=== PATIENT | female | born 1950 | race African-American/Black ===

== ENCOUNTER 2019-08-22 13:12 | Emergency (ER) | payer BC, MEDICAID, MEDICARE ==
[~2019-08-22] VITALS: Ht 167.6 cm; Wt 62.0 kg
[2019-08-22] MEDS ORDERED: SODIUM CHLORIDE 0.9% 1000ML BAG (SEPSIS BOLUS) IV ONE (15:30)
[2019-08-22 15:58] LABS: HEMATOCRIT. 29.3 % (36.0-48.0); HEMOGLOBIN. 10.1 g/dL (12.0-16.0); MEAN CORPUSCULAR HEMOGLOBIN 34.3 pg (28.0-32.0); MEAN CORPUSCULAR VOLUME 99.4 fL (81.0-99.0); MEAN PLATELET VOLUME 8.5 fl (7.4-10.4); PLATELET 326 x1000/uL (130-400); RED BLOOD CELL COUNT 2.95 mill/uL (4.2-5.4); RED CELL DISTRIBUTION WIDTH 14.2 % (11.6-14.6)
[2019-08-22 16:02] LABS: CLARITY URINE TURBID (CLEAR); COLOR URINE DARK YELLOW (YELLOW); KETONES URINE 1+ (NEGATIVE); LEUKOCYTE ESTERASE URINE 3+ (NEGATIVE); NITRITE URINE NEGATIVE (NEGATIVE); OCCULT BLOOD URINE 2+ (NEGATIVE); PH URINE 5.5 (4.5-8.0); PROTEIN URINE 2+ (NEGATIVE); SPECIFIC GRAVITY URINE 1.021 (1.005-1.030)
[2019-08-22 16:05] LABS: CHLORIDE 98 mEq/L (98-107)
[2019-08-22 16:12] LABS: PROTHROMBIN TIME 10.9 sec (9.6-11.0)
[2019-08-22] MEDS ORDERED: CEFTRIAXONE 1 G PREMIX 50 ML IV NR (17:00)
[2019-08-22 18:49] LABS: NUCLEATED RED BLOOD CELLS 2 /100 WBC; PLATELET ESTIMATE NORMAL
[2019-08-22 19:26] VITALS: BP 143/75
[2019-08-23] MEDS ORDERED: OXYB5TAB16 PO (09:47)
[2019-08-23] MEDS ORDERED: OMEP20TA15 PO (09:47)
[2019-08-23] MEDS ORDERED: BACL20TA MT (09:47)
[2019-08-23] MEDS ORDERED: METO1TAB26 MT (09:47)
[2019-08-23] MEDS ORDERED: GABA-531 PO (09:47)
== END 2019-08-22 19:28 | disposition home or self-care (01) ==
LOC: ER 13:12 → CANBEDREQ 21:22
DX: N39.0 Urinary tract infection, site not specified (principal); N31.9 Neuromuscular dysfunction of bladder, unspecified; E86.0 Dehydration; E11.9 Type 2 diabetes mellitus without complications; I10 Essential (primary) hypertension; G82.20 Paraplegia, unspecified; Z99.3 Dependence on wheelchair
CPT/HCPCS: 36415; 71045; 80053; 81003; 82962; 83605; 84145; 84484; 85025; 85610; 87040; 87086; 93005; 96365; 99285; J0696; J7030

== ENCOUNTER 2019-08-22 23:57 | Inpatient (IN) | payer BC, MEDICARE ==
[~2019-08-22] VITALS: Ht 167.6 cm; Wt 73.9 kg
[2019-08-23 02:02] LABS: CLARITY URINE CLOUDY (CLEAR); COLOR URINE YELLOW (YELLOW); KETONES URINE 1+ (NEGATIVE); LEUKOCYTE ESTERASE URINE 2+ (NEGATIVE); NITRITE URINE NEGATIVE (NEGATIVE); OCCULT BLOOD URINE 2+ (NEGATIVE); PH URINE 5.5 (4.5-8.0); PROTEIN URINE 2+ (NEGATIVE); SPECIFIC GRAVITY URINE 1.017 (1.005-1.030)
[2019-08-23 02:04] LABS: CHLORIDE 100 mEq/L (98-107)
[2019-08-23 02:08] LABS: HEMOGLOBIN. 10.1 g/dL (12.0-16.0); MEAN CORPUSCULAR HEMOGLOBIN 33.7 pg (28.0-32.0); MEAN CORPUSCULAR VOLUME 100.4 fL (81.0-99.0); MEAN PLATELET VOLUME 8.5 fl (7.4-10.4); PLATELET 343 x1000/uL (130-400); RED BLOOD CELL COUNT 2.99 mill/uL (4.2-5.4); RED CELL DISTRIBUTION WIDTH 14.1 % (11.6-14.6)
[2019-08-23 05:47] LABS: ATYPICAL LYMPHOCYTES 1; PLATELET ESTIMATE NORMAL
[2019-08-23] MEDS ORDERED: HYDROCODONE/ACETAMINOPHEN 5/325MG TABLET PO PRN ×2 (06:00→06:30)
[2019-08-23] MEDS ORDERED: ONDANSETRON HCL 4MG/2ML INJ IV PRN (06:30)
[2019-08-23] MEDS ORDERED: CEFTRIAXONE 1 G PREMIX 50 ML IV SCH (06:30)
[2019-08-23] MEDS ORDERED: ACETAMINOPHEN 325MG TABLET PO PRN (06:30)
[2019-08-23] MEDS ORDERED: GUAIFENESIN 200MG/10ML SUGAR FREE UDC PO PRN (06:30)
[2019-08-23] MEDS ORDERED: MAGNESIUM/ALUMINUM HYDROXIDE/SIMETHICONE 30ML UDC PO PRN (06:30)
[2019-08-23] MEDS: SODIUM CHLORIDE 0.9% 1,000 ML IV SCH ×2 (06:48→21:50)
[2019-08-23] MEDS ORDERED: BACL20TA MT (09:47)
[2019-08-23] MEDS ORDERED: OXYB5TAB16 PO (09:47)
[2019-08-23] MEDS ORDERED: METO1TAB26 MT (09:47)
[2019-08-23] MEDS ORDERED: OMEP20TA15 PO (09:47)
[2019-08-23] MEDS ORDERED: GABA-531 PO (09:47)
[2019-08-23] MEDS: ENOXAPARIN 40MG/0.4ML SYR SUBCUT SCH (09:54)
[2019-08-23] MEDS ORDERED: DEXTROSE 50% WATER 50ML SYRINGE IV PRN (10:45)
[2019-08-23 12:30] VITALS: BP 140/83
[2019-08-23 12:46] VITALS: BP 140/83
[2019-08-23] MEDS ORDERED: BACLOFEN 20MG TABLET PO SCH (13:00)
[2019-08-23] MEDS: OMEPRAZOLE 20MG CAPSULE EXTENDED RELEASE PO SCH (13:10)
[2019-08-23] MEDS: GABAPENTIN 300MG CAPSULE PO SCH ×2 (13:10→16:42)
[2019-08-23] MEDS: OXYBUTYNIN CHLORIDE 5MG TABLET PO SCH ×2 (13:11→16:42)
[2019-08-23] MEDS: METOPROLOL TARTRATE 25MG TABLET PO SCH ×2 (13:11→21:38)
[2019-08-23] MEDS: BLOOD SUGAR DIAGNOSTIC STRIP TEST SCH ×3 (13:22→21:32)
[2019-08-23] MEDS: INSULIN LISPRO 100 UNITS/ML SUBCUT SCH ×3 (13:27→21:37)
[2019-08-23 16:00] VITALS: BP 134/84
[2019-08-23] MEDS: BACLOFEN 10MG TABLET PO SCH ×2 (16:44→21:37)
[2019-08-23 20:00] VITALS: BP 147/71
[2019-08-24] VITALS (8 sets, daily range): BP systolic 100–168; BP diastolic 63–93
[2019-08-24] MEDS: BLOOD SUGAR DIAGNOSTIC STRIP TEST SCH ×4 (05:45→20:52)
[2019-08-24] MEDS: CEFTRIAXONE 1 G PREMIX 50 ML IV SCH (05:48)
[2019-08-24] MEDS: OMEPRAZOLE 20MG CAPSULE EXTENDED RELEASE PO SCH (05:56)
[2019-08-24] MEDS: INSULIN LISPRO 100 UNITS/ML SUBCUT SCH ×4 (06:02→20:52)
[2019-08-24 06:59] LABS: CHLORIDE 105 mEq/L (98-107)
[2019-08-24 07:39] LABS: HEMATOCRIT. 27.5 % (36.0-48.0); HEMOGLOBIN. 9.5 g/dL (12.0-16.0); MEAN CORPUSCULAR HEMOGLOBIN 34.5 pg (28.0-32.0); MEAN CORPUSCULAR VOLUME 99.7 fL (81.0-99.0); MEAN PLATELET VOLUME 8.1 fl (7.4-10.4); PLATELET 409 x1000/uL (130-400); RED BLOOD CELL COUNT 2.76 mill/uL (4.2-5.4)
[2019-08-24] MEDS: OXYBUTYNIN CHLORIDE 5MG TABLET PO SCH ×3 (08:55→17:15)
[2019-08-24] MEDS: METOPROLOL TARTRATE 25MG TABLET PO SCH ×2 (08:55→21:09)
[2019-08-24] MEDS: GABAPENTIN 300MG CAPSULE PO SCH ×3 (08:55→17:15)
[2019-08-24] MEDS: BACLOFEN 10MG TABLET PO SCH ×4 (08:55→21:09)
[2019-08-24] MEDS: ENOXAPARIN 40MG/0.4ML SYR SUBCUT SCH (08:56)
[2019-08-24] MEDS: SODIUM CHLORIDE 0.9% 1,000 ML IV SCH ×2 (13:07→22:34)
[2019-08-24 22:32] LABS: PLATELET ESTIMATE INCREASED
[2019-08-25] VITALS (7 sets, daily range): BP systolic 121–167; BP diastolic 70–85
[2019-08-25] MEDS: CEFTRIAXONE 1 G PREMIX 50 ML IV SCH (05:04)
[2019-08-25 06:08] LABS: HEMATOCRIT. 29.1 % (36.0-48.0); MEAN CORPUSCULAR HEMOGLOBIN 34.8 pg (28.0-32.0); MEAN CORPUSCULAR VOLUME 101.2 fL (81.0-99.0); MEAN PLATELET VOLUME 8.1 fl (7.4-10.4); PLATELET 462 x1000/uL (130-400); RED BLOOD CELL COUNT 2.87 mill/uL (4.2-5.4); RED CELL DISTRIBUTION WIDTH 14.4 % (11.6-14.6)
[2019-08-25] MEDS: BLOOD SUGAR DIAGNOSTIC STRIP TEST SCH ×4 (06:20→20:57)
[2019-08-25 06:27] LABS: CHLORIDE 106 mEq/L (98-107)
[2019-08-25] MEDS: OMEPRAZOLE 20MG CAPSULE EXTENDED RELEASE PO SCH (06:36)
[2019-08-25] MEDS: INSULIN LISPRO 100 UNITS/ML SUBCUT SCH ×4 (06:37→21:35)
[2019-08-25] MEDS: METOPROLOL TARTRATE 25MG TABLET PO SCH ×2 (09:21→21:34)
[2019-08-25] MEDS: GABAPENTIN 300MG CAPSULE PO SCH ×3 (09:21→17:29)
[2019-08-25] MEDS: BACLOFEN 10MG TABLET PO SCH ×4 (09:21→21:35)
[2019-08-25] MEDS: OXYBUTYNIN CHLORIDE 5MG TABLET PO SCH ×3 (09:21→17:29)
[2019-08-25] MEDS: ENOXAPARIN 40MG/0.4ML SYR SUBCUT SCH (09:22)
[2019-08-25 10:48] LABS: PLATELET ESTIMATE INCREASED
[2019-08-25] MEDS: SODIUM CHLORIDE 0.9% 1,000 ML IV SCH (17:55)
[2019-08-26] VITALS (8 sets, daily range): BP systolic 108–194; BP diastolic 59–108
[2019-08-26] MEDS: SODIUM CHLORIDE 0.9% 1,000 ML IV SCH ×2 (01:07→15:10)
[2019-08-26] MEDS: FAMOTIDINE 20MG TABLET PO SCH ×2 (06:20→16:37)
[2019-08-26] MEDS: BLOOD SUGAR DIAGNOSTIC STRIP TEST SCH ×3 (06:20→17:10)
[2019-08-26] MEDS: CEFTRIAXONE 1 G PREMIX 50 ML IV SCH (06:20)
[2019-08-26] MEDS: INSULIN LISPRO 100 UNITS/ML SUBCUT SCH ×3 (06:44→17:40)
[2019-08-26] MEDS: OXYBUTYNIN CHLORIDE 5MG TABLET PO SCH ×3 (08:03→16:37)
[2019-08-26] MEDS: GABAPENTIN 300MG CAPSULE PO SCH ×3 (08:03→16:37)
[2019-08-26] MEDS: METOPROLOL TARTRATE 25MG TABLET PO SCH (08:04)
[2019-08-26] MEDS: CLONIDINE 0.1MG TABLET PO PRN ×2 (08:04→16:37)
[2019-08-26] MEDS: BACLOFEN 10MG TABLET PO SCH ×3 (08:04→16:38)
[2019-08-26] MEDS: ENOXAPARIN 40MG/0.4ML SYR SUBCUT SCH (08:05)
== END 2019-08-26 20:15 | disposition home health service (06) | DRG 871 ==
LOC: ER 23:57 → EDBEDREQTM 08-23 04:26 → EDBEDREQ 08-23 04:26 → EDBEDREQSVC 08-23 04:26 → 8WST 08-23 04:29 → EDBEDREQ 08-23 04:31 → ENRESERV 08-23 11:07
PROVIDERS: ADMIT Hospitalist; ATTEND Hospitalist
PROC: 0T2BX0Z Change Drainage Device in Bladder, External Approach (ICD-10-PCS; principal; 2019-08-24)
DX: A41.9 Sepsis, unspecified organism (principal); E43 Unspecified severe protein-calorie malnutrition; N39.0 Urinary tract infection, site not specified; G82.20 Paraplegia, unspecified; Z68.26 Body mass index [BMI] 26.0-26.9, adult; E11.9 Type 2 diabetes mellitus without complications; E53.8 Deficiency of other specified B group vitamins; I10 Essential (primary) hypertension; N31.8 Other neuromuscular dysfunction of bladder
CPT/HCPCS: 36415; 71045; 80053; 81003; 82962; 83036; 83605; 84145; 84484; 85025; 93005; 93970; 97162; 97530; 99291; J0696; J1650; J1815; J2405

== ENCOUNTER 2020-03-12 15:42 | Emergency (ER) | payer MEDICARE ==
[~2020-03-12] VITALS: Ht 162.6 cm; Wt 82.0 kg
[~2020-03-12 15:42] MED LIST: BACL20TA MT; GABA-532 PO; METO1TAB26 MT; OMEP20TA15 PO; OXYB5TAB16 PO
[2020-03-12 16:10] VITALS: BP 186/11
== END 2020-03-12 19:34 | disposition home or self-care (01) ==
LOC: ER 15:42
DX: T83.098A Other mechanical complication of other urinary catheter, initial encounter (principal); E11.9 Type 2 diabetes mellitus without complications; I10 Essential (primary) hypertension; E03.9 Hypothyroidism, unspecified; Z99.3 Dependence on wheelchair; Y84.6 Urinary catheterization as the cause of abnormal reaction of the patient, or of later complication, without mention of misadventure at the time of the procedure; Y92.018 Other place in single-family (private) house as the place of occurrence of the external cause
CPT/HCPCS: 99284

== ENCOUNTER 2021-01-08 20:32 | Emergency (ER) | payer MEDICARE ==
[~2021-01-08] VITALS: Ht 170.2 cm; Wt 69.0 kg
[~2021-01-08 20:32] MED LIST changes: +AMLO10TA80 PO; +ASPI-1497 MT; -BACL20TA MT; +BACL20TA PO; +BIMA2.5D4 EACHEYE; +FISH MT; +GABA-532 MT; -GABA-532 PO; +LEVO500T89 MT; +LEVO50TA8 MT; -METO1TAB26 MT; -OMEP20TA15 PO; +OMEP20TA2 PO; -OXYB5TAB16 PO; +OXYB5TAB17 PO; +PYRI100T17 MT; +SITA1TAB6 MT; +TOLT4CAP MT
[2021-01-08] MEDS ORDERED: BACITRACIN ZINC OINT UDPKT TOP ONE (23:45)
[2021-01-08] MEDS ORDERED: LIDOCAINE HCL/PF 1% 10 MG/ML 5ML VIAL INFIL ONE (23:45)
[2021-01-09] MEDS ORDERED: LIDOCAINE HCL 1% 10 MG/ML 10ML VIAL IJ SCH ×2 (00:15)
[2021-01-09 07:15] VITALS: BP 155/78
== END 2021-01-09 07:21 | disposition home or self-care (01) ==
LOC: ER 20:32
DX: T83.028A Displacement of other urinary catheter, initial encounter (principal); R33.9 Retention of urine, unspecified; I10 Essential (primary) hypertension; E11.9 Type 2 diabetes mellitus without complications; E03.9 Hypothyroidism, unspecified; Z79.82 Long term (current) use of aspirin; Y84.6 Urinary catheterization as the cause of abnormal reaction of the patient, or of later complication, without mention of misadventure at the time of the procedure; Y92.018 Other place in single-family (private) house as the place of occurrence of the external cause
CPT/HCPCS: 51702; 99285; J3490

== ENCOUNTER 2021-07-16 17:58 | Inpatient (IN) | payer MEDICARE, MEDICAID ==
[~2021-07-16] VITALS: Ht 162.6 cm; Wt 77.2 kg
[~2021-07-16 17:58] MED LIST changes: -BACL20TA PO; +COR25 MT; -GABA-532 MT; +HYDR100T26 PO; -LEVO500T89 MT; +MEMA5TAB7 PO; +MIRT-89 PO; -OMEP20TA2 PO; +OMEP20TA23 PO; -TOLT4CAP MT
[2021-07-16 18:59] LABS: BASOPHILS % 0.7 % (0.0-2.0); EOSINOPHILS % 2.5 % (0.0-5.0); HEMATOCRIT. 34.6 % (36.0-48.0); HEMOGLOBIN. 11.7 g/dL (12.0-16.0); LYMPHOCYTES % 22.8 % (20.0-50.0); MEAN CORPUSCULAR HEMOGLOBIN 34.2 pg (28.0-32.0); MEAN CORPUSCULAR VOLUME 101.2 fL (81.0-99.0); MEAN PLATELET VOLUME 8.9 fl (7.4-10.4); MONOCYTES % 7.1 % (2.0-8.0); NEUTROPHILS % 66.9 % (40.0-76.0); PLATELET 162 x1000/uL (130-400); RED BLOOD CELL COUNT 3.42 mill/uL (4.2-5.4); RED CELL DISTRIBUTION WIDTH 14.1 % (11.6-14.6)
[2021-07-16 19:16] LABS: CHLORIDE 103 mEq/L (98-107)
[2021-07-16 19:30] LABS: CLARITY URINE CLOUDY (CLEAR); COLOR URINE YELLOW (YELLOW); KETONES URINE TRACE (NEGATIVE); LEUKOCYTE ESTERASE URINE 3+ (NEGATIVE); NITRITE URINE NEGATIVE (NEGATIVE); OCCULT BLOOD URINE NEGATIVE (NEGATIVE); PROTEIN URINE 1+ (NEGATIVE); SPECIFIC GRAVITY URINE 1.019 (1.005-1.030)
[2021-07-16] MEDS ORDERED: CEFTRIAXONE 1 G PREMIX 50 ML IV ONE (19:30)
[2021-07-16] MEDS ORDERED: AZITHROMYCIN 500MG/250ML 250 ML IV ONE (19:30)
[2021-07-16 19:34] LABS: HEPATITIS B SURFACE ANTIGEN NEGATIVE
[2021-07-16] MEDS ORDERED: SODIUM CHLORIDE 0.9% 1000ML BAG (SEPSIS BOLUS) IV ONE (21:45)
[2021-07-17] VITALS: BP 158/81
[2021-07-17] MEDS ORDERED: DEXTROSE 50% WATER 50ML SYRINGE IV PRN (00:30)
[2021-07-17] MEDS ORDERED: FAMO20TA8 PO (00:40)
[2021-07-17] MEDS ORDERED: LINA5TAB PO (00:40)
[2021-07-17 04:00] VITALS: BP 127/80
[2021-07-17 06:31] LABS: BASOPHILS % 0.6 % (0.0-2.0); EOSINOPHILS % 2.2 % (0.0-5.0); HEMATOCRIT. 29.8 % (36.0-48.0); HEMOGLOBIN. 10.3 g/dL (12.0-16.0); LYMPHOCYTES % 27.7 % (20.0-50.0); MEAN CORPUSCULAR HEMOGLOBIN 34.5 pg (28.0-32.0); MEAN CORPUSCULAR VOLUME 99.5 fL (81.0-99.0); MEAN PLATELET VOLUME 8.2 fl (7.4-10.4); NEUTROPHILS % 60.5 % (40.0-76.0); PLATELET 140 x1000/uL (130-400); RED BLOOD CELL COUNT 2.99 mill/uL (4.2-5.4); RED CELL DISTRIBUTION WIDTH 13.6 % (11.6-14.6)
[2021-07-17 06:42] LABS: CHLORIDE 105 mEq/L (98-107)
[2021-07-17 06:57] LABS: HDL CHOLESTEROL 35 mg/dL (40-59); LDL CHOLESTEROL 37 mg/dL (5-100)
[2021-07-17] MEDS: INSULIN LISPRO 100 UNITS/ML SUBCUT SCH ×2 (07:12→12:38)
[2021-07-17] MEDS: BLOOD SUGAR DIAGNOSTIC STRIP TEST SCH ×2 (07:12→12:38)
[2021-07-17 08:00] VITALS: BP 131/93
[2021-07-17 11:57] VITALS: BP 143/82
[2021-07-17] MEDS ORDERED: CEFTRIAXONE 1 G PREMIX 50 ML IV SCH (14:30)
[2021-07-17 16:00] VITALS: BP 167/93
[2021-07-17] MEDS ORDERED: PANTOPRAZOLE SODIUM 40 MG/VIAL IV SCH (16:15)
[2021-07-17] MEDS ORDERED: BISACODYL 10MG SUPP PR NR (16:15)
[2021-07-17 18:21] LABS: TOTAL IRON BINDING CAPACITY 349 ug/dL (250-450)
[2021-07-17 18:38] LABS: FERRITIN 37 ng/mL (10-291)
[2021-07-17 18:48] LABS: VITAMIN B12 SERUM 134 pg/mL (211-911)
[2021-07-17 19:06] LABS: FOLIC ACID (FOLATE) SERUM > 20.00 ng/mL (>5.38)
[2021-07-17 20:00] VITALS: BP 179/83
[2021-07-17] MEDS ORDERED: CEFTRIAXONE 1,000 MG in DEXTROSE 5% WATER 50 ML IV SCH (20:00)
[2021-07-17] MEDS: MEMANTINE HCL 5MG TABLET PO SCH (22:03)
[2021-07-17] MEDS: OXYBUTYNIN CHLORIDE 5MG TABLET PO SCH (22:07)
[2021-07-17] MEDS: LINAGLIPTIN 5MG TABLET PO SCH (22:07)
[2021-07-17] MEDS: FISH OIL/OMEGA-3 FATTY ACIDS 1000MG CAPSULE PO SCH (22:09)
[2021-07-17] MEDS: AMLODIPINE 10MG TABLET PO SCH (22:09)
[2021-07-17] MEDS: FAMOTIDINE 20MG TABLET PO SCH (22:10)
[2021-07-17] MEDS: HYDRALAZINE HCL 100MG TABLET PO SCH (22:10)
[2021-07-17] MEDS: ASPIRIN 81MG EC TABLET PO SCH (22:12)
[2021-07-17] MEDS: MIRTAZAPINE 15MG TABLET PO SCH (22:12)
[2021-07-17] MEDS: LEVOTHYROXINE SODIUM 50MCG TABLET PO SCH (22:12)
[2021-07-18] VITALS: BP 130/70
[2021-07-18 04:00] VITALS: BP 136/51
[2021-07-18] MEDS: LEVOTHYROXINE SODIUM 50MCG TABLET PO SCH ×2 (06:07→06:17)
[2021-07-18] MEDS: HYDRALAZINE HCL 100MG TABLET PO SCH ×4 (06:07→21:17)
[2021-07-18 07:29] LABS: BASOPHILS % 0.6 % (0.0-2.0); EOSINOPHILS % 2.6 % (0.0-5.0); LYMPHOCYTES % 30.2 % (20.0-50.0); MEAN CORPUSCULAR VOLUME 99.8 fL (81.0-99.0); MEAN PLATELET VOLUME 8.5 fl (7.4-10.4); MONOCYTES % 11.6 % (2.0-8.0); PLATELET 162 x1000/uL (130-400); RED BLOOD CELL COUNT 3.59 mill/uL (4.2-5.4); RED CELL DISTRIBUTION WIDTH 13.9 % (11.6-14.6)
[2021-07-18 07:35] LABS: HEMATOCRIT. 35.8 % (36.0-48.0); HEMOGLOBIN. 12.2 g/dL (12.0-16.0)
[2021-07-18 07:48] LABS: CHLORIDE 105 mEq/L (98-107)
[2021-07-18 07:54] VITALS: BP 153/85
[2021-07-18] MEDS: FISH OIL/OMEGA-3 FATTY ACIDS 1000MG CAPSULE PO SCH (08:39)
[2021-07-18] MEDS: LINAGLIPTIN 5MG TABLET PO SCH (08:39)
[2021-07-18] MEDS: OXYBUTYNIN CHLORIDE 5MG TABLET PO SCH (08:39)
[2021-07-18] MEDS: FAMOTIDINE 20MG TABLET PO SCH (08:39)
[2021-07-18] MEDS: MEMANTINE HCL 5MG TABLET PO SCH ×2 (08:39→21:16)
[2021-07-18] MEDS: ASPIRIN 81MG EC TABLET PO SCH (08:39)
[2021-07-18] MEDS: AMLODIPINE 10MG TABLET PO SCH (08:39)
[2021-07-18 11:42] VITALS: BP 152/82
[2021-07-18] MEDS: POLYETHYLENE GLYCOL 3350 (17GM) 1 DOSE PACK PO SCH (11:54)
[2021-07-18] MEDS ORDERED: POTASSIUM CHLORIDE 20MEQ TABLET SR PO NR ×2 (12:00→13:00)
[2021-07-18 16:03] VITALS: BP 110/69
[2021-07-18] MEDS ORDERED: LACTULOSE 20G/30ML UDC PO PRN (16:30)
[2021-07-18] MEDS ORDERED: POLYETHYLENE GLYCOL 3350 (17GM) 1 DOSE PACK PO SCH (16:30)
[2021-07-18] MEDS ORDERED: LACTULOSE 20G/30ML UDC PO NR (16:30)
[2021-07-18] MEDS: DOCUSATE SODIUM 100MG CAPSULE PO SCH (16:33)
[2021-07-18] MEDS ORDERED: CYANOCOBALAMIN 1000MCG/ML VIAL IM NR (18:00)
[2021-07-18 20:00] VITALS: BP 152/85
[2021-07-18] MEDS: MEROPENEM 1,000 MG in SODIUM CHLORIDE 0.9% 100 ML IV SCH (21:04)
[2021-07-18] MEDS: SENNOSIDES/DOCUSATE SOD 8.6/50MG TABLET PO SCH (21:16)
[2021-07-18] MEDS: MIRTAZAPINE 15MG TABLET PO SCH (21:17)
[2021-07-19] VITALS: BP 145/83
[2021-07-19 04:00] VITALS: BP 147/96
[2021-07-19] MEDS: HYDRALAZINE HCL 100MG TABLET PO SCH ×3 (05:33→21:04)
[2021-07-19] MEDS: MEROPENEM 1,000 MG in SODIUM CHLORIDE 0.9% 100 ML IV SCH (05:34)
[2021-07-19] MEDS: LEVOTHYROXINE SODIUM 50MCG TABLET PO SCH (06:30)
[2021-07-19 07:27] LABS: CHLORIDE 108 mEq/L (98-107)
[2021-07-19 07:28] LABS: BASOPHILS % 0.3 % (0.0-2.0); EOSINOPHILS % 2.9 % (0.0-5.0); HEMATOCRIT. 33.5 % (36.0-48.0); HEMOGLOBIN. 11.4 g/dL (12.0-16.0); LYMPHOCYTES % 22.5 % (20.0-50.0); MEAN CORPUSCULAR HEMOGLOBIN 33.9 pg (28.0-32.0); MEAN CORPUSCULAR VOLUME 99.3 fL (81.0-99.0); MEAN PLATELET VOLUME 8.6 fl (7.4-10.4); MONOCYTES % 9.9 % (2.0-8.0); NEUTROPHILS % 64.4 % (40.0-76.0); PLATELET 152 x1000/uL (130-400); RED BLOOD CELL COUNT 3.37 mill/uL (4.2-5.4); RED CELL DISTRIBUTION WIDTH 13.7 % (11.6-14.6)
[2021-07-19 08:00] VITALS: BP 159/80
[2021-07-19] MEDS: MEMANTINE HCL 5MG TABLET PO SCH ×2 (08:58→21:04)
[2021-07-19] MEDS: ASPIRIN 81MG EC TABLET PO SCH (08:58)
[2021-07-19] MEDS: OXYBUTYNIN CHLORIDE 5MG TABLET PO SCH (08:58)
[2021-07-19] MEDS: DOCUSATE SODIUM 100MG CAPSULE PO SCH ×2 (08:58→17:46)
[2021-07-19] MEDS: POLYETHYLENE GLYCOL 3350 (17GM) 1 DOSE PACK PO SCH (08:58)
[2021-07-19] MEDS: FAMOTIDINE 20MG TABLET PO SCH (08:59)
[2021-07-19] MEDS: CYANOCOBALAMIN 1000MCG TABLET PO SCH (08:59)
[2021-07-19] MEDS: AMLODIPINE 10MG TABLET PO SCH (08:59)
[2021-07-19] MEDS: FISH OIL/OMEGA-3 FATTY ACIDS 1000MG CAPSULE PO SCH (08:59)
[2021-07-19] MEDS: LINAGLIPTIN 5MG TABLET PO SCH (08:59)
[2021-07-19] MEDS ORDERED: DIATR MEGLU/DIATRIZOATE SOLN 30ML PO NR (09:00)
[2021-07-19] MEDS ORDERED: SULF1TAB48 MT ×2 (09:09)
[2021-07-19 12:00] VITALS: BP 140/80
[2021-07-19] MEDS ORDERED: IOHEXOL-300 100 ML BOTTLE ONE (13:29)
[2021-07-19 16:00] VITALS: BP 135/77
[2021-07-19] MEDS: MEROPENEM 1000MG in NORMAL SALINE 100ML IV SCH (17:46)
[2021-07-19 20:00] VITALS: BP 164/90
[2021-07-19] MEDS: SENNOSIDES/DOCUSATE SOD 8.6/50MG TABLET PO SCH (21:04)
[2021-07-19] MEDS: MIRTAZAPINE 15MG TABLET PO SCH (21:04)
[2021-07-20 00:05] VITALS: BP 100/62
[2021-07-20 04:00] VITALS: BP 140/80
[2021-07-20] MEDS: HYDRALAZINE HCL 100MG TABLET PO SCH ×3 (05:10→21:05)
[2021-07-20] MEDS: MEROPENEM 1000MG in NORMAL SALINE 100ML IV SCH ×2 (05:10→17:05)
[2021-07-20] MEDS: LEVOTHYROXINE SODIUM 50MCG TABLET PO SCH (06:32)
[2021-07-20 08:00] VITALS: BP 155/88
[2021-07-20] MEDS: CYANOCOBALAMIN 1000MCG TABLET PO SCH (08:21)
[2021-07-20] MEDS: FISH OIL/OMEGA-3 FATTY ACIDS 1000MG CAPSULE PO SCH (08:21)
[2021-07-20] MEDS: ASPIRIN 81MG EC TABLET PO SCH (08:21)
[2021-07-20] MEDS: POLYETHYLENE GLYCOL 3350 (17GM) 1 DOSE PACK PO SCH (08:21)
[2021-07-20] MEDS: OXYBUTYNIN CHLORIDE 5MG TABLET PO SCH (08:21)
[2021-07-20] MEDS: MEMANTINE HCL 5MG TABLET PO SCH ×2 (08:21→21:04)
[2021-07-20] MEDS: AMLODIPINE 10MG TABLET PO SCH (08:21)
[2021-07-20] MEDS: DOCUSATE SODIUM 100MG CAPSULE PO SCH ×2 (08:21→17:02)
[2021-07-20] MEDS: FAMOTIDINE 20MG TABLET PO SCH (08:21)
[2021-07-20] MEDS: LINAGLIPTIN 5MG TABLET PO SCH (08:21)
[2021-07-20 12:00] VITALS: BP 162/87
[2021-07-20] MEDS ORDERED: LACTULOSE 20G/30ML UDC PO NR (13:00)
[2021-07-20 16:00] VITALS: BP 141/90
[2021-07-20] MEDS: SENNOSIDES/DOCUSATE SOD 8.6/50MG TABLET PO SCH (21:04)
[2021-07-20] MEDS: MIRTAZAPINE 15MG TABLET PO SCH (21:04)
[2021-07-21] VITALS: BP_SYST 159; BP_SYST 187; BP_DIAS 96; BP_DIAS 98
[2021-07-21 04:00] VITALS: BP 156/93
[2021-07-21] MEDS: HYDRALAZINE HCL 100MG TABLET PO SCH ×3 (06:11→21:24)
[2021-07-21] MEDS: MEROPENEM 1000MG in NORMAL SALINE 100ML IV SCH ×2 (06:26→17:32)
[2021-07-21 08:00] VITALS: BP 160/88
[2021-07-21] MEDS: POLYETHYLENE GLYCOL 3350 (17GM) 1 DOSE PACK PO SCH (08:10)
[2021-07-21] MEDS: AMLODIPINE 10MG TABLET PO SCH (08:11)
[2021-07-21] MEDS: LEVOTHYROXINE SODIUM 50MCG TABLET PO SCH (08:11)
[2021-07-21] MEDS: CYANOCOBALAMIN 1000MCG TABLET PO SCH (08:11)
[2021-07-21] MEDS: ASPIRIN 81MG EC TABLET PO SCH (08:11)
[2021-07-21] MEDS: DOCUSATE SODIUM 100MG CAPSULE PO SCH ×2 (08:11→17:43)
[2021-07-21] MEDS: MEMANTINE HCL 5MG TABLET PO SCH ×2 (08:11→20:32)
[2021-07-21] MEDS: LINAGLIPTIN 5MG TABLET PO SCH (08:11)
[2021-07-21] MEDS: OXYBUTYNIN CHLORIDE 5MG TABLET PO SCH (08:11)
[2021-07-21] MEDS: FISH OIL/OMEGA-3 FATTY ACIDS 1000MG CAPSULE PO SCH (08:11)
[2021-07-21] MEDS: FAMOTIDINE 20MG TABLET PO SCH (08:15)
[2021-07-21 12:00] VITALS: BP 142/88
[2021-07-21] MEDS ORDERED: SORBITOL 70% SOLN 30ML PO NR (14:00)
[2021-07-21 16:00] VITALS: BP 131/98
[2021-07-21] MEDS ORDERED: BISACODYL 10MG SUPP PR PRN (16:45)
[2021-07-21] MEDS: METOCLOPRAMIDE HCL 10MG/2ML VIAL IV SCH (17:32)
[2021-07-21 20:00] VITALS: BP 168/97
[2021-07-21] MEDS: MIRTAZAPINE 15MG TABLET PO SCH (20:32)
[2021-07-21] MEDS: SENNOSIDES/DOCUSATE SOD 8.6/50MG TABLET PO SCH (20:32)
[2021-07-22] VITALS (7 sets, daily range): BP systolic 132–157; BP diastolic 71–99
[2021-07-22] MEDS: METOCLOPRAMIDE HCL 10MG/2ML VIAL IV SCH ×3 (01:28→17:49)
[2021-07-22] MEDS: HYDRALAZINE HCL 100MG TABLET PO SCH ×3 (05:26→21:39)
[2021-07-22] MEDS: MEROPENEM 1000MG in NORMAL SALINE 100ML IV SCH ×2 (05:26→17:49)
[2021-07-22] MEDS: LEVOTHYROXINE SODIUM 50MCG TABLET PO SCH (06:48)
[2021-07-22] MEDS: POLYETHYLENE GLYCOL 3350 (17GM) 1 DOSE PACK PO SCH (09:14)
[2021-07-22] MEDS: AMLODIPINE 10MG TABLET PO SCH (09:15)
[2021-07-22] MEDS: ASPIRIN 81MG EC TABLET PO SCH (09:15)
[2021-07-22] MEDS: OXYBUTYNIN CHLORIDE 5MG TABLET PO SCH (09:15)
[2021-07-22] MEDS: DOCUSATE SODIUM 100MG CAPSULE PO SCH ×2 (09:15→17:50)
[2021-07-22] MEDS: CYANOCOBALAMIN 1000MCG TABLET PO SCH (09:15)
[2021-07-22] MEDS: MEMANTINE HCL 5MG TABLET PO SCH ×2 (09:15→20:42)
[2021-07-22] MEDS: LINAGLIPTIN 5MG TABLET PO SCH (09:15)
[2021-07-22] MEDS: FAMOTIDINE 20MG TABLET PO SCH (09:16)
[2021-07-22] MEDS: FISH OIL/OMEGA-3 FATTY ACIDS 1000MG CAPSULE PO SCH (09:17)
[2021-07-22] MEDS ORDERED: SORBITOL 70% SOLN 30ML PO SCH (13:00)
[2021-07-22] MEDS: SORBITOL 70% SOLN 30ML PO SCH ×2 (17:49→20:41)
[2021-07-22] MEDS: BISACODYL 10MG SUPP PR SCH (17:50)
[2021-07-22 18:16] LABS: BASOPHILS % 0.6 % (0.0-2.0); HEMATOCRIT. 34.3 % (36.0-48.0); HEMOGLOBIN. 11.4 g/dL (12.0-16.0); LYMPHOCYTES % 36.7 % (20.0-50.0); MEAN CORPUSCULAR VOLUME 99.2 fL (81.0-99.0); MEAN PLATELET VOLUME 8.7 fl (7.4-10.4); MONOCYTES % 13.8 % (2.0-8.0); NEUTROPHILS % 43.9 % (40.0-76.0); PLATELET 169 x1000/uL (130-400); RED BLOOD CELL COUNT 3.46 mill/uL (4.2-5.4); RED CELL DISTRIBUTION WIDTH 13.6 % (11.6-14.6)
[2021-07-22 18:44] LABS: CHLORIDE 102 mEq/L (98-107)
[2021-07-22] MEDS: SENNOSIDES/DOCUSATE SOD 8.6/50MG TABLET PO SCH (20:42)
[2021-07-22] MEDS: MIRTAZAPINE 15MG TABLET PO SCH (20:42)
[2021-07-23] VITALS (7 sets, daily range): BP systolic 128–174; BP diastolic 79–104
[2021-07-23] MEDS: SORBITOL 70% SOLN 30ML PO SCH ×2 (00:43→03:59)
[2021-07-23] MEDS: METOCLOPRAMIDE HCL 10MG/2ML VIAL IV SCH ×3 (01:50→17:07)
[2021-07-23] MEDS: MEROPENEM 1000MG in NORMAL SALINE 100ML IV SCH ×2 (05:43→17:07)
[2021-07-23] MEDS: HYDRALAZINE HCL 100MG TABLET PO SCH ×3 (05:44→16:50)
[2021-07-23] MEDS: LEVOTHYROXINE SODIUM 50MCG TABLET PO SCH (06:52)
[2021-07-23] MEDS: FISH OIL/OMEGA-3 FATTY ACIDS 1000MG CAPSULE PO SCH (09:29)
[2021-07-23] MEDS: DOCUSATE SODIUM 100MG CAPSULE PO SCH ×2 (09:29→17:07)
[2021-07-23] MEDS: ASPIRIN 81MG EC TABLET PO SCH (09:29)
[2021-07-23] MEDS: CYANOCOBALAMIN 1000MCG TABLET PO SCH (09:29)
[2021-07-23] MEDS: FAMOTIDINE 20MG TABLET PO SCH (09:29)
[2021-07-23] MEDS: LINAGLIPTIN 5MG TABLET PO SCH (09:30)
[2021-07-23] MEDS: OXYBUTYNIN CHLORIDE 5MG TABLET PO SCH (09:30)
[2021-07-23] MEDS: BISACODYL 10MG SUPP PR SCH (09:30)
[2021-07-23] MEDS: AMLODIPINE 10MG TABLET PO SCH (09:30)
[2021-07-23] MEDS: MEMANTINE HCL 5MG TABLET PO SCH ×2 (09:30→21:31)
[2021-07-23] MEDS: POLYETHYLENE GLYCOL 3350 (17GM) 1 DOSE PACK PO SCH (09:30)
[2021-07-23 09:36] LABS: BASOPHILS % 0.9 % (0.0-2.0); EOSINOPHILS % 5.1 % (0.0-5.0); HEMATOCRIT. 35.5 % (36.0-48.0); HEMOGLOBIN. 11.9 g/dL (12.0-16.0); LYMPHOCYTES % 31.5 % (20.0-50.0); MEAN CORPUSCULAR HEMOGLOBIN 33.3 pg (28.0-32.0); MEAN CORPUSCULAR VOLUME 99.6 fL (81.0-99.0); MEAN PLATELET VOLUME 8.4 fl (7.4-10.4); MONOCYTES % 12.2 % (2.0-8.0); NEUTROPHILS % 50.3 % (40.0-76.0); PLATELET 181 x1000/uL (130-400); RED BLOOD CELL COUNT 3.57 mill/uL (4.2-5.4); RED CELL DISTRIBUTION WIDTH 13.5 % (11.6-14.6)
[2021-07-23 09:50] LABS: CHLORIDE 106 mEq/L (98-107)
[2021-07-23] MEDS ORDERED: DIATR MEGLU/DIATRIZOATE SOLN 30ML PO SCH (15:00)
[2021-07-23] MEDS: SENNOSIDES/DOCUSATE SOD 8.6/50MG TABLET PO SCH (21:31)
[2021-07-23] MEDS: MIRTAZAPINE 15MG TABLET PO SCH (21:31)
[2021-07-24] VITALS: BP 146/85
[2021-07-24] MEDS: HYDRALAZINE HCL 100MG TABLET PO SCH ×4 (00:25→21:01)
[2021-07-24 04:00] VITALS: BP 155/88
[2021-07-24] MEDS: METOCLOPRAMIDE HCL 10MG/2ML VIAL IV SCH ×3 (04:00→18:14)
[2021-07-24] MEDS: MEROPENEM 1000MG in NORMAL SALINE 100ML IV SCH ×2 (05:50→18:15)
[2021-07-24 06:48] LABS: CHLORIDE 106 mEq/L (98-107)
[2021-07-24 07:01] LABS: EOSINOPHILS % 5.9 % (0.0-5.0); HEMATOCRIT. 34.2 % (36.0-48.0); HEMOGLOBIN. 11.6 g/dL (12.0-16.0); LYMPHOCYTES % 39.9 % (20.0-50.0); MEAN CORPUSCULAR HEMOGLOBIN 33.5 pg (28.0-32.0); MEAN CORPUSCULAR VOLUME 99.1 fL (81.0-99.0); MEAN PLATELET VOLUME 8.2 fl (7.4-10.4); MONOCYTES % 12.9 % (2.0-8.0); NEUTROPHILS % 40.3 % (40.0-76.0); PLATELET 190 x1000/uL (130-400); RED BLOOD CELL COUNT 3.45 mill/uL (4.2-5.4); RED CELL DISTRIBUTION WIDTH 13.7 % (11.6-14.6)
[2021-07-24] MEDS: LEVOTHYROXINE SODIUM 50MCG TABLET PO SCH (07:02)
[2021-07-24 08:00] VITALS: BP 188/96
[2021-07-24] MEDS: CYANOCOBALAMIN 1000MCG TABLET PO SCH (08:56)
[2021-07-24] MEDS: MEMANTINE HCL 5MG TABLET PO SCH ×2 (08:57→21:01)
[2021-07-24] MEDS: LINAGLIPTIN 5MG TABLET PO SCH (08:57)
[2021-07-24] MEDS: ASPIRIN 81MG EC TABLET PO SCH (08:57)
[2021-07-24] MEDS: FAMOTIDINE 20MG TABLET PO SCH (08:57)
[2021-07-24] MEDS: OXYBUTYNIN CHLORIDE 5MG TABLET PO SCH (08:57)
[2021-07-24] MEDS: FISH OIL/OMEGA-3 FATTY ACIDS 1000MG CAPSULE PO SCH (08:57)
[2021-07-24] MEDS: BISACODYL 10MG SUPP PR SCH (08:58)
[2021-07-24] MEDS: POLYETHYLENE GLYCOL 3350 (17GM) 1 DOSE PACK PO SCH (08:58)
[2021-07-24] MEDS: AMLODIPINE 10MG TABLET PO SCH (08:58)
[2021-07-24] MEDS: DOCUSATE SODIUM 100MG CAPSULE PO SCH ×2 (08:58→18:15)
[2021-07-24] MEDS ORDERED: DIATR MEGLU/DIATRIZOATE SOLN 30ML PO NR (10:45)
[2021-07-24 12:30] VITALS: BP 163/90
[2021-07-24 16:00] VITALS: BP_SYST 139; BP_SYST 151; BP_DIAS 67; BP_DIAS 80
[2021-07-24] MEDS ORDERED: IOHEXOL-300 100 ML BOTTLE ONE (17:17)
[2021-07-24 20:00] VITALS: BP 187/95
[2021-07-24] MEDS: SENNOSIDES/DOCUSATE SOD 8.6/50MG TABLET PO SCH (21:01)
[2021-07-24] MEDS: MIRTAZAPINE 15MG TABLET PO SCH (21:01)
[2021-07-25] VITALS: BP 135/93
[2021-07-25] MEDS: METOCLOPRAMIDE HCL 10MG/2ML VIAL IV SCH ×3 (01:57→17:03)
[2021-07-25 04:00] VITALS: BP 165/82
[2021-07-25] MEDS: LEVOTHYROXINE SODIUM 50MCG TABLET PO SCH (05:14)
[2021-07-25] MEDS: MEROPENEM 1000MG in NORMAL SALINE 100ML IV SCH ×2 (05:14→17:03)
[2021-07-25] MEDS: HYDRALAZINE HCL 100MG TABLET PO SCH ×3 (05:14→21:07)
[2021-07-25 06:54] LABS: BASOPHILS % 1.3 % (0.0-2.0); HEMATOCRIT. 33.7 % (36.0-48.0); HEMOGLOBIN. 11.4 g/dL (12.0-16.0); LYMPHOCYTES % 41.8 % (20.0-50.0); MEAN CORPUSCULAR HEMOGLOBIN 33.6 pg (28.0-32.0); MEAN CORPUSCULAR VOLUME 99.7 fL (81.0-99.0); MEAN PLATELET VOLUME 8.1 fl (7.4-10.4); MONOCYTES % 14.3 % (2.0-8.0); NEUTROPHILS % 37.6 % (40.0-76.0); PLATELET 200 x1000/uL (130-400); RED BLOOD CELL COUNT 3.38 mill/uL (4.2-5.4); RED CELL DISTRIBUTION WIDTH 13.4 % (11.6-14.6)
[2021-07-25 07:16] LABS: CHLORIDE 105 mEq/L (98-107)
[2021-07-25 07:58] VITALS: BP 160/88
[2021-07-25] MEDS: CYANOCOBALAMIN 1000MCG TABLET PO SCH (08:21)
[2021-07-25] MEDS: FISH OIL/OMEGA-3 FATTY ACIDS 1000MG CAPSULE PO SCH (08:21)
[2021-07-25] MEDS: AMLODIPINE 10MG TABLET PO SCH (08:21)
[2021-07-25] MEDS: MEMANTINE HCL 5MG TABLET PO SCH ×2 (08:21→21:06)
[2021-07-25] MEDS: DOCUSATE SODIUM 100MG CAPSULE PO SCH ×2 (08:21→17:00)
[2021-07-25] MEDS: LINAGLIPTIN 5MG TABLET PO SCH (08:21)
[2021-07-25] MEDS: ASPIRIN 81MG EC TABLET PO SCH (08:22)
[2021-07-25] MEDS: FAMOTIDINE 20MG TABLET PO SCH (08:22)
[2021-07-25] MEDS: POLYETHYLENE GLYCOL 3350 (17GM) 1 DOSE PACK PO SCH (08:22)
[2021-07-25] MEDS: OXYBUTYNIN CHLORIDE 5MG TABLET PO SCH (08:22)
[2021-07-25] MEDS: BISACODYL 10MG SUPP PR SCH (08:22)
[2021-07-25 12:00] VITALS: BP 154/90
[2021-07-25 16:00] VITALS: BP 157/86
[2021-07-25 20:00] VITALS: BP 153/86
[2021-07-25] MEDS: MIRTAZAPINE 15MG TABLET PO SCH (21:07)
[2021-07-25] MEDS: SENNOSIDES/DOCUSATE SOD 8.6/50MG TABLET PO SCH (21:07)
[2021-07-26] VITALS (7 sets, daily range): BP systolic 141–162; BP diastolic 79–96
[2021-07-26] MEDS: METOCLOPRAMIDE HCL 10MG/2ML VIAL IV SCH ×3 (02:12→17:27)
[2021-07-26] MEDS: MEROPENEM 1000MG in NORMAL SALINE 100ML IV SCH ×2 (05:40→17:27)
[2021-07-26] MEDS: HYDRALAZINE HCL 100MG TABLET PO SCH ×3 (05:40→21:09)
[2021-07-26 07:21] LABS: EOSINOPHILS % 3.5 % (0.0-5.0); HEMATOCRIT. 31.5 % (36.0-48.0); HEMOGLOBIN. 10.7 g/dL (12.0-16.0); LYMPHOCYTES % 39.7 % (20.0-50.0); MEAN CORPUSCULAR HEMOGLOBIN 33.6 pg (28.0-32.0); MEAN CORPUSCULAR VOLUME 98.4 fL (81.0-99.0); MEAN PLATELET VOLUME 8.2 fl (7.4-10.4); MONOCYTES % 12.6 % (2.0-8.0); NEUTROPHILS % 43.2 % (40.0-76.0); PLATELET 195 x1000/uL (130-400); RED CELL DISTRIBUTION WIDTH 13.5 % (11.6-14.6)
[2021-07-26 07:50] LABS: CHLORIDE 106 mEq/L (98-107)
[2021-07-26] MEDS: OXYBUTYNIN CHLORIDE 5MG TABLET PO SCH (09:15)
[2021-07-26] MEDS: FAMOTIDINE 20MG TABLET PO SCH (09:15)
[2021-07-26] MEDS: AMLODIPINE 10MG TABLET PO SCH (09:15)
[2021-07-26] MEDS: BISACODYL 10MG SUPP PR SCH (09:15)
[2021-07-26] MEDS: POLYETHYLENE GLYCOL 3350 (17GM) 1 DOSE PACK PO SCH (09:15)
[2021-07-26] MEDS: FISH OIL/OMEGA-3 FATTY ACIDS 1000MG CAPSULE PO SCH (09:15)
[2021-07-26] MEDS: LINAGLIPTIN 5MG TABLET PO SCH (09:15)
[2021-07-26] MEDS: MEMANTINE HCL 5MG TABLET PO SCH ×2 (09:15→21:09)
[2021-07-26] MEDS: ASPIRIN 81MG EC TABLET PO SCH (09:16)
[2021-07-26] MEDS: CYANOCOBALAMIN 1000MCG TABLET PO SCH (09:16)
[2021-07-26] MEDS: DOCUSATE SODIUM 100MG CAPSULE PO SCH ×2 (09:16→17:27)
[2021-07-26] MEDS: LEVOTHYROXINE SODIUM 50MCG TABLET PO SCH (09:24)
[2021-07-26] MEDS: MIRTAZAPINE 15MG TABLET PO SCH (21:08)
[2021-07-26] MEDS: SENNOSIDES/DOCUSATE SOD 8.6/50MG TABLET PO SCH (21:09)
[2021-07-27] VITALS: BP 172/78
[2021-07-27] MEDS: METOCLOPRAMIDE HCL 10MG/2ML VIAL IV SCH (01:11)
[2021-07-27 04:00] VITALS: BP 167/98
[2021-07-27] MEDS: LEVOTHYROXINE SODIUM 50MCG TABLET PO SCH (04:37)
[2021-07-27] MEDS: HYDRALAZINE HCL 100MG TABLET PO SCH (04:37)
[2021-07-27] MEDS: MEROPENEM 1000MG in NORMAL SALINE 100ML IV SCH (04:37)
== END 2021-07-27 06:04 | disposition home or self-care (01) | DRG 389 ==
LOC: ER 17:58 → 7WST 19:33 → ENRESERV 21:57
PROVIDERS: ADMIT Internal Medicine; ATTEND Internal Medicine
DX: K56.41 Fecal impaction (principal); N39.0 Urinary tract infection, site not specified; K56.7 Ileus, unspecified; J98.11 Atelectasis; Z16.12 Extended spectrum beta lactamase (ESBL) resistance; K52.9 Noninfective gastroenteritis and colitis, unspecified; E87.70 Fluid overload, unspecified; E03.9 Hypothyroidism, unspecified; E11.9 Type 2 diabetes mellitus without complications; E78.5 Hyperlipidemia, unspecified; I10 Essential (primary) hypertension; N28.1 Cyst of kidney, acquired; D53.9 Nutritional anemia, unspecified; B96.20 Unspecified Escherichia coli [E. coli] as the cause of diseases classified elsewhere; Z20.822 Contact with and (suspected) exposure to COVID-19; E78.00 Pure hypercholesterolemia, unspecified; Z87.440 Personal history of urinary (tract) infections; Z79.82 Long term (current) use of aspirin; Z79.899 Other long term (current) drug therapy; Z79.84 Long term (current) use of oral hypoglycemic drugs; E53.8 Deficiency of other specified B group vitamins
CPT/HCPCS: 36415; 71045; 74018; 74176; 74177; 76830; 76856; 78227; 80048; 80053; 80061; 81003; 82607; 82728; 82746; 82962; 83036; 83540; 83550; 83605; 83880; 84484; 85025; 85044; 86705; 86709; 86803; 87077; 87186; 87340; 87426; 93005; 99291; C9113; J0456; J0696; J2185; J2765; J3420; J7030; J7050; J7060; Q9963; Q9967

== ENCOUNTER 2021-10-12 14:36 | Emergency (ER) | payer MEDICARE, MEDICAID ==
[~2021-10-12] VITALS: Ht 167.6 cm; Wt 86.0 kg
[~2021-10-12 14:36] MED LIST changes: +FAMO20TA8 PO; +LINA5TAB PO
[2021-10-12 18:32] VITALS: BP 160/84
== END 2021-10-12 19:55 | disposition home or self-care (01) ==
LOC: ER 14:40
DX: T83.038A Leakage of other urinary catheter, initial encounter (principal); E11.9 Type 2 diabetes mellitus without complications; E78.00 Pure hypercholesterolemia, unspecified; I10 Essential (primary) hypertension; E03.9 Hypothyroidism, unspecified; G82.20 Paraplegia, unspecified; Z79.82 Long term (current) use of aspirin; Z87.440 Personal history of urinary (tract) infections; Y84.6 Urinary catheterization as the cause of abnormal reaction of the patient, or of later complication, without mention of misadventure at the time of the procedure; Y92.018 Other place in single-family (private) house as the place of occurrence of the external cause
CPT/HCPCS: 76856; 99283

== ENCOUNTER 2021-11-28 00:29 | Inpatient (IN) | payer MEDICARE, MEDICAID ==
[~2021-11-28] VITALS: Ht 167.6 cm; Wt 60.3 kg
[2021-11-28] MEDS ORDERED: ASPIRIN 81MG TABLET PO NR (02:15)
[2021-11-28] MEDS ORDERED: NITROGLYCERIN 0.4MG TABLET SL SL PRN (02:15)
[2021-11-28 04:27] LABS: CHLORIDE 101 mEq/L (98-107)
[2021-11-28 04:28] LABS: BASOPHILS % 0.6 % (0.0-2.0); EOSINOPHILS % 2.5 % (0.0-5.0); HEMATOCRIT. 28.2 % (36.0-48.0); HEMOGLOBIN. 9.7 g/dL (12.0-16.0); LYMPHOCYTES % 32.5 % (20.0-50.0); MEAN CORPUSCULAR HEMOGLOBIN 35.7 pg (28.0-32.0); MEAN CORPUSCULAR VOLUME 103.4 fL (81.0-99.0); MEAN PLATELET VOLUME 8.5 fl (7.4-10.4); MONOCYTES % 11.1 % (2.0-8.0); NEUTROPHILS % 53.3 % (40.0-76.0); PLATELET 120 x1000/uL (130-400); RED BLOOD CELL COUNT 2.73 mill/uL (4.2-5.4); RED CELL DISTRIBUTION WIDTH 13.8 % (11.6-14.6)
[2021-11-28] MEDS ORDERED: SODIUM CHLORIDE 0.9% 1000ML BAG (SEPSIS BOLUS) IV ONE (04:45)
[2021-11-28 06:20] LABS: CLARITY URINE CLEAR (CLEAR); COLOR URINE YELLOW (YELLOW); SPECIFIC GRAVITY URINE 1.028 (1.005-1.030)
[2021-11-28 06:21] LABS: KETONES URINE 2+ (NEGATIVE); LEUKOCYTE ESTERASE URINE NEGATIVE (NEGATIVE); NITRITE URINE NEGATIVE (NEGATIVE); OCCULT BLOOD URINE NEGATIVE (NEGATIVE); PROTEIN URINE TRACE (NEGATIVE)
[2021-11-28] MEDS ORDERED: GUAIFENESIN 200MG/10ML SUGAR FREE UDC PO PRN (07:45)
[2021-11-28] MEDS ORDERED: ONDANSETRON HCL 4MG/2ML INJ IV PRN (07:45)
[2021-11-28] MEDS ORDERED: MAGNESIUM/ALUMINUM HYDROXIDE/SIMETHICONE 30ML UDC PO PRN (07:45)
[2021-11-28] MEDS ORDERED: IPRATROPIUM/ALBUTEROL 0.5-3(2.5)MG/3ML NEB NEB PRN (07:45)
[2021-11-28] MEDS ORDERED: HYDROCODONE/ACETAMINOPHEN 5/325MG TABLET PO PRN (07:45)
[2021-11-28] MEDS ORDERED: ACETAMINOPHEN 325MG TABLET PO PRN ×2 (07:45)
[2021-11-28] MEDS ORDERED: ENOXAPARIN 40MG/0.4ML SYR SUBCUT SCH (07:45)
[2021-11-28] MEDS ORDERED: NALOXONE HCL 0.4MG/ML VIAL IV PRN (08:15)
[2021-11-28] MEDS: CLONIDINE 0.1MG TABLET PO PRN ×2 (08:37→20:37)
[2021-11-28 09:50] VITALS: BP 190/148
[2021-11-28] MEDS: ENOXAPARIN 30MG/0.3ML SYR SUBCUT SCH (09:55)
[2021-11-28 16:00] VITALS: BP 161/84
[2021-11-28 16:13] LABS: FOLIC ACID (FOLATE) SERUM >20 ng/mL ng/mL (>5.38); VITAMIN B12 SERUM 210 pg/mL (211-911)
[2021-11-28 16:30] LABS: FERRITIN 83 ng/mL (10-291)
[2021-11-28] MEDS ORDERED: CEFTRIAXONE 1 G PREMIX 50 ML IV SCH (16:30)
[2021-11-28] MEDS ORDERED: SODIUM CHLORIDE 0.9% 1,000 ML IV ONE (17:45)
[2021-11-28] MEDS: CEFTRIAXONE 1,000 MG in DEXTROSE 5% WATER 50 ML IV SCH (18:26)
[2021-11-28] MEDS: AMLODIPINE 10MG TABLET PO SCH (18:26)
[2021-11-28] MEDS ORDERED: DEXTROSE 50% WATER 50ML SYRINGE IV PRN (18:30)
[2021-11-28 20:00] VITALS: BP 152/96
[2021-11-28] MEDS: CYANOCOBALAMIN/FA/PYRIDOXINE TABLET PO SCH (20:36)
[2021-11-28] MEDS: INSULIN LISPRO 100 UNITS/ML SUBCUT SCH (20:37)
[2021-11-28] MEDS: BLOOD SUGAR DIAGNOSTIC STRIP TEST SCH (20:37)
[2021-11-28 22:59] LABS: T4 FREE 0.7 ng/dL (0.76-1.46)
[2021-11-29] VITALS: BP 141/76
[2021-11-29 04:00] VITALS: BP 122/83
[2021-11-29 08:00] VITALS: BP 152/96
[2021-11-29] MEDS: INSULIN LISPRO 100 UNITS/ML SUBCUT SCH ×4 (08:10→21:00)
[2021-11-29] MEDS: BLOOD SUGAR DIAGNOSTIC STRIP TEST SCH ×4 (08:31→21:00)
[2021-11-29] MEDS: ENOXAPARIN 30MG/0.3ML SYR SUBCUT SCH (09:59)
[2021-11-29] MEDS: AMLODIPINE 10MG TABLET PO SCH (10:00)
[2021-11-29] MEDS: CYANOCOBALAMIN/FA/PYRIDOXINE TABLET PO SCH (10:00)
[2021-11-29] MEDS: LEVOTHYROXINE SODIUM 50MCG TABLET PO SCH (10:00)
[2021-11-29 11:11] LABS: BASOPHILS % 0.3 % (0.0-2.0); EOSINOPHILS % 2.2 % (0.0-5.0); LYMPHOCYTES % 12.9 % (20.0-50.0); MEAN CORPUSCULAR HEMOGLOBIN 35.1 pg (28.0-32.0); MEAN CORPUSCULAR VOLUME 103.9 fL (81.0-99.0); MEAN PLATELET VOLUME 8.7 fl (7.4-10.4); MONOCYTES % 7.2 % (2.0-8.0); NEUTROPHILS % 77.4 % (40.0-76.0); PLATELET 138 x1000/uL (130-400); RED BLOOD CELL COUNT 3.27 mill/uL (4.2-5.4); RED CELL DISTRIBUTION WIDTH 14.1 % (11.6-14.6)
[2021-11-29 11:13] LABS: HEMOGLOBIN. 11.5 g/dL (12.0-16.0)
[2021-11-29 11:22] LABS: PHOSPHORUS 3.3 mg/dL (2.5-4.9)
[2021-11-29 12:00] VITALS: BP 142/91
[2021-11-29] MEDS ORDERED: POTASSIUM CHLORIDE 20MEQ TABLET SR PO NR (14:00)
[2021-11-29] MEDS: CEFTRIAXONE 1,000 MG in DEXTROSE 5% WATER 50 ML IV SCH (15:04)
[2021-11-29] MEDS ORDERED: MAGNESIUM 2 G PREMIX 50 ML IV NR (15:30)
[2021-11-29 16:00] VITALS: BP 149/81
[2021-11-29 20:00] VITALS: BP 172/91
[2021-11-29] MEDS: CLONIDINE 0.1MG TABLET PO PRN (22:01)
[2021-11-30] VITALS (7 sets, daily range): BP systolic 127–141; BP diastolic 70–80
[2021-11-30] MEDS: BLOOD SUGAR DIAGNOSTIC STRIP TEST SCH ×4 (06:20→20:51)
[2021-11-30] MEDS: LEVOTHYROXINE SODIUM 50MCG TABLET PO SCH (06:20)
[2021-11-30] MEDS: INSULIN LISPRO 100 UNITS/ML SUBCUT SCH ×4 (06:20→20:51)
[2021-11-30 09:21] LABS: BASOPHILS % 0.5 % (0.0-2.0); EOSINOPHILS % 2.2 % (0.0-5.0); HEMATOCRIT. 30.1 % (36.0-48.0); HEMOGLOBIN. 10.4 g/dL (12.0-16.0); LYMPHOCYTES % 25.6 % (20.0-50.0); MEAN CORPUSCULAR HEMOGLOBIN 35.9 pg (28.0-32.0); MEAN PLATELET VOLUME 8.5 fl (7.4-10.4); MONOCYTES % 9.6 % (2.0-8.0); NEUTROPHILS % 62.1 % (40.0-76.0); PLATELET 125 x1000/uL (130-400); RED BLOOD CELL COUNT 2.89 mill/uL (4.2-5.4)
[2021-11-30] MEDS: AMLODIPINE 10MG TABLET PO SCH (09:21)
[2021-11-30] MEDS: ENOXAPARIN 30MG/0.3ML SYR SUBCUT SCH (09:21)
[2021-11-30] MEDS: CYANOCOBALAMIN/FA/PYRIDOXINE TABLET PO SCH (09:21)
[2021-11-30 09:41] LABS: PHOSPHORUS 3.7 mg/dL (2.5-4.9)
[2021-11-30] MEDS ORDERED: FERROUS SULFATE 325MG TABLET PO SCH (15:00)
[2021-11-30] MEDS: CEFTRIAXONE 1,000 MG in DEXTROSE 5% WATER 50 ML IV SCH (17:57)
[2021-11-30] MEDS ORDERED: FERR-63 PO (18:20)
[2021-12-01] VITALS: BP 152/88
[2021-12-01 04:00] VITALS: BP 160/92
[2021-12-01] MEDS: INSULIN LISPRO 100 UNITS/ML SUBCUT SCH ×3 (06:05→17:07)
[2021-12-01] MEDS: BLOOD SUGAR DIAGNOSTIC STRIP TEST SCH ×3 (06:05→17:07)
[2021-12-01] MEDS: LEVOTHYROXINE SODIUM 50MCG TABLET PO SCH (06:05)
[2021-12-01] MEDS: CLONIDINE 0.1MG TABLET PO PRN ×2 (06:05→16:24)
[2021-12-01 08:04] LABS: BASOPHILS % 0.5 % (0.0-2.0); EOSINOPHILS % 2.3 % (0.0-5.0); HEMATOCRIT. 32.6 % (36.0-48.0); HEMOGLOBIN. 10.8 g/dL (12.0-16.0); LYMPHOCYTES % 29.5 % (20.0-50.0); MEAN CORPUSCULAR HEMOGLOBIN 35.4 pg (28.0-32.0); MEAN CORPUSCULAR VOLUME 106.9 fL (81.0-99.0); MEAN PLATELET VOLUME 8.9 fl (7.4-10.4); MONOCYTES % 9.6 % (2.0-8.0); NEUTROPHILS % 58.1 % (40.0-76.0); PLATELET 141 x1000/uL (130-400); RED BLOOD CELL COUNT 3.05 mill/uL (4.2-5.4); RED CELL DISTRIBUTION WIDTH 14.6 % (11.6-14.6)
[2021-12-01 08:33] LABS: CHLORIDE 102 mEq/L (98-107)
[2021-12-01] MEDS ORDERED: ENOXAPARIN 40MG/0.4ML SYR SUBCUT SCH (09:00)
[2021-12-01] MEDS: AMLODIPINE 10MG TABLET PO SCH (10:27)
[2021-12-01] MEDS: CYANOCOBALAMIN/FA/PYRIDOXINE TABLET PO SCH (10:27)
[2021-12-01 12:00] VITALS: BP 139/89
[2021-12-01 15:55] VITALS: BP 139/72
[2021-12-01] MEDS: CEFTRIAXONE 1,000 MG in DEXTROSE 5% WATER 50 ML IV SCH (17:07)
== END 2021-12-01 17:30 | disposition home health service (06) | DRG 682 ==
LOC: ER 00:29 → 7WST 05:04 → EDBEDREQ 05:08 → EDBEDREQTM 05:08 → SUPCPDRO 07:13 → ENRESERV 08:03
PROVIDERS: ADMIT Internal Medicine; ATTEND Internal Medicine
DX: N17.0 Acute kidney failure with tubular necrosis (principal); L89.153 Pressure ulcer of sacral region, stage 3; E46 Unspecified protein-calorie malnutrition; E87.20 Acidosis, unspecified; G82.20 Paraplegia, unspecified; M62.82 Rhabdomyolysis; D53.9 Nutritional anemia, unspecified; D51.9 Vitamin B12 deficiency anemia, unspecified; E03.9 Hypothyroidism, unspecified; E11.49 Type 2 diabetes mellitus with other diabetic neurological complication; E83.42 Hypomagnesemia; E87.6 Hypokalemia; N20.0 Calculus of kidney; N28.1 Cyst of kidney, acquired; N31.9 Neuromuscular dysfunction of bladder, unspecified; I11.9 Hypertensive heart disease without heart failure; E78.00 Pure hypercholesterolemia, unspecified; D50.9 Iron deficiency anemia, unspecified; Z79.899 Other long term (current) drug therapy; Z93.59 Other cystostomy status; Z68.21 Body mass index [BMI] 21.0-21.9, adult; W19.XXXA Unspecified fall, initial encounter; Y93.89 Activity, other specified; Y92.89 Other specified places as the place of occurrence of the external cause; Y99.8 Other external cause status
CPT/HCPCS: 36415; 71045; 76700; 80048; 80053; 81003; 82040; 82550; 82607; 82728; 82746; 82962; 83036; 83540; 83550; 83605; 83735; 83880; 84100; 84134; 84145; 84439; 84443; 84484; 85025; 93005; 93306; 97162; 99285; A6261; J0696; J1650; J1815; J3475; J7030; J7060

== ENCOUNTER 2022-12-21 08:59 | Inpatient (IN) | payer MEDICARE, MEDICAID ==
[~2022-12-21] VITALS: Ht 167.6 cm; Wt 68.2 kg
[~2022-12-21 08:59] MED LIST changes: +BACL20TA MT; +COR12 PO; -COR25 MT; +FERR-63 PO; +HYDR100T26 MT; -HYDR100T26 PO; -OMEP20TA23 PO
[2022-12-21] MEDS ORDERED: LORAZEPAM 2MG/ML CPJ IV ONE (10:00)
[2022-12-21] MEDS ORDERED: CEFTRIAXONE 1GM PREMIX 50 ML IV ONE (10:45)
[2022-12-21] MEDS ORDERED: VANCOMYCIN 1G PREMIX 200 ML IV SCH (10:45)
[2022-12-21] MEDS ORDERED: SODIUM CHLORIDE 0.9% 1000ML BAG (SEPSIS BOLUS) IV ONE (10:45)
[2022-12-21 11:07] LABS: BASOPHILS % 0.6 % (0.0-2.0); EOSINOPHILS % 0.7 % (0.0-5.0); HEMATOCRIT. 28.6 % (36.0-48.0); HEMOGLOBIN. 9.4 g/dL (12.0-16.0); MEAN CORPUSCULAR VOLUME 96.9 fL (81.0-99.0); MEAN PLATELET VOLUME 7.6 fl (7.4-10.4); MONOCYTES % 6.5 % (2.0-8.0); NEUTROPHILS % 80.2 % (40.0-76.0); PLATELET 207 x1000/uL (130-400); RED BLOOD CELL COUNT 2.95 mill/uL (4.2-5.4); RED CELL DISTRIBUTION WIDTH 14.4 % (11.6-14.6)
[2022-12-21 11:15] LABS: CHLORIDE 98 mEq/L (98-107); INDEX HEMOLYSI 1 (1-3); INDEX ICTERIC 1 (1-4); INDEX LIPEMIC 1 (1-3); INR 1.1; POTASSIUM 4.5 mEq/L (3.5-5.1); PROTHROMBIN TIME 11.9 sec (9.6-11.0); SODIUM 133 mEq/L (136-145)
[2022-12-21 11:23] LABS: ALANINE AMINOTRANSFERASE 15 IU/L (13-61); ALBUMIN 3.2 g/dL (3.4-5.0); ASPARTATE AMINOTRANSFERASE 10 IU/L (15-37); BILIRUBIN TOTAL 0.4 mg/dL (0.1-1.0); CALCIUM 9.3 mg/dL (8.5-10.1); CARBON DIOXIDE 29 mEq/L (21-32); CREATININE 1.7 mg/dL (0.6-1.3); ETHANOL BLOOD < 10 mg/dL (<10); PROTEIN TOTAL 7.6 g/dL (6.0-8.3); TROPONIN I HIGH SENSITIVITY 13 ng/L (<54); UREA NITROGEN BLOOD 36 mg/dL (7-21)
[2022-12-21 11:45] LABS: GLUCOSE 413 mg/dL (70-105)
[2022-12-21 12:11] LABS: CLARITY URINE TURBID (CLEAR); COLOR URINE YELLOW (YELLOW); GLUCOSE URINE 1+ (NEGATIVE); KETONES URINE NEGATIVE (NEGATIVE); LEUKOCYTE ESTERASE URINE 2+ (NEGATIVE); NITRITE URINE NEGATIVE (NEGATIVE); OCCULT BLOOD URINE NEGATIVE (NEGATIVE); PROTEIN URINE 1+ (NEGATIVE); SPECIFIC GRAVITY URINE 1.048 (1.005-1.030); UROBILINOGEN URINE 0.2 E.U./dL (0.2-1.0)
[2022-12-21] MEDS ORDERED: INSULIN REGULAR (HUMULIN R) 300UNITS/3ML VIAL IV STA (12:16)
[2022-12-21 12:24] LABS: SQUAMOUS EPITHELIAL CELL URINE 3+ /lpf (RARE/1+)
[2022-12-21 12:25] LABS: WBC URINE 15-25 /hpf (0-2)
[2022-12-21 12:26] LABS: BACTERIA URINE 4+; RBC URINE 0-2 /hpf (0-2)
[2022-12-21] MEDS ORDERED: ASPIRIN 300MG SUPP PR ONE (12:30)
[2022-12-21 13:29] LABS: *AMPHETAMINES SCREEN URINE NEGATIVE (NEGATIVE); *BARBITURATES SCREEN URINE NEGATIVE (NEGATIVE); *BENZODIAZEPINES SCREEN URINE NEGATIVE (NEGATIVE); *COCAINE SCREEN URINE NEGATIVE (NEGATIVE); CANNABINOID URINE SCREEN NEGATIVE (NEGATIVE); ECSTASY MDMA SCREEN URINE NEGATIVE (NEGATIVE); METHADONE URINE SCREEN NEGATIVE (NEGATIVE); OPIATES URINE SCREEN NEGATIVE (NEGATIVE); PHENCYCLIDINE URINE SCREEN NEGATIVE (NEGATIVE)
[2022-12-21] MEDS ORDERED: DOCUSATE SODIUM 100MG CAPSULE PO PRN (13:30)
[2022-12-21] MEDS ORDERED: ONDANSETRON HCL 4MG/2ML INJ IV PRN (13:30)
[2022-12-21] MEDS ORDERED: IPRATROPIUM/ALBUTEROL 0.5-3(2.5)MG/3ML NEB HHN PRN (13:30)
[2022-12-21] MEDS ORDERED: LORAZEPAM 0.5MG TABLET PO PRN (13:30)
[2022-12-21] MEDS ORDERED: HYDROCODONE/ACETAMINOPHEN 5/325MG TABLET PO PRN (13:30)
[2022-12-21] MEDS ORDERED: ACETAMINOPHEN 325MG TABLET PO PRN ×2 (13:30)
[2022-12-21] MEDS ORDERED: DEXTROSE 50% WATER 50ML SYRINGE IV PRN (13:30)
[2022-12-21] MEDS ORDERED: CEFTRIAXONE 1GM PREMIX 50 ML IV SCH (13:30)
[2022-12-21] MEDS ORDERED: IOHEXOL-350 100 ML BOTTLE ONE (13:45)
[2022-12-21] MEDS ORDERED: NALOXONE HCL 0.4MG/ML VIAL IV PRN (15:45)
[2022-12-21 16:00] VITALS: BP 134/117; PULSE 67; RESP 16; TEMP 97.4
[2022-12-21 16:49] VITALS: BP 133/73; PULSE 71; RESP 14; TEMP 97.4
[2022-12-21 17:00] VITALS: PULSE 69; RESP 12
[2022-12-21] MEDS: BLOOD SUGAR DIAGNOSTIC STRIP TEST SCH ×2 (17:45→21:13)
[2022-12-21] MEDS: INSULIN LISPRO 100 UNITS/ML SUBCUT SCH ×2 (17:52→21:11)
[2022-12-21 18:00] VITALS: BP 143/86; PULSE 63; RESP 9
[2022-12-21 18:55] LABS: TROPONIN I HIGH SENSITIVITY 11 ng/L (<54)
[2022-12-21 20:00] VITALS: BP 171/98; PULSE 74; RESP 15; TEMP 97.5
[2022-12-21 22:00] VITALS: BP 162/101; PULSE 74; RESP 15
[2022-12-22] VITALS (12 sets, daily range): BP systolic 115–185; BP diastolic 66–146; PULSE 74–110; RESP 15–27; TEMP 97.6–98
[2022-12-22] MEDS: CLONIDINE 0.1MG TABLET PO PRN (02:35)
[2022-12-22 05:26] LABS: BASOPHILS % 0.4 % (0.0-2.0); HEMATOCRIT. 29.5 % (36.0-48.0); LYMPHOCYTES % 11.6 % (20.0-50.0); MEAN CORPUSCULAR HEMOGLOBIN 33.2 pg (28.0-32.0); MEAN CORPUSCULAR HGB CONC 33.9 g/dL (31.0-37.0); MEAN CORPUSCULAR VOLUME 98.1 fL (81.0-99.0); MEAN PLATELET VOLUME 8.5 fl (7.4-10.4); MONOCYTES % 10.6 % (2.0-8.0); NEUTROPHILS % 76.4 % (40.0-76.0); PLATELET 221 x1000/uL (130-400); RED CELL DISTRIBUTION WIDTH 14.7 % (11.6-14.6)
[2022-12-22 06:34] LABS: POTASSIUM 4.5 mEq/L (3.5-5.1)
[2022-12-22 06:41] LABS: CALCIUM 7.5 mg/dL (8.5-10.1); CREATININE 1.3 mg/dL (0.6-1.3)
[2022-12-22] MEDS: BLOOD SUGAR DIAGNOSTIC STRIP TEST SCH ×4 (07:17→20:22)
[2022-12-22] MEDS: INSULIN LISPRO 100 UNITS/ML SUBCUT SCH ×5 (08:00→20:32)
[2022-12-22] MEDS ORDERED: LORAZEPAM 2MG/ML CPJ IV PRN (08:30)
[2022-12-22] MEDS: LORAZEPAM 2MG/ML CPJ IM PRN ×3 (08:46→20:48)
[2022-12-22] MEDS: CEFTRIAXONE 1,000 MG in DEXTROSE 5% WATER 50 ML IV SCH (09:13)
[2022-12-22] MEDS: HYDRALAZINE HCL 100MG TABLET PO SCH ×2 (12:04→17:06)
[2022-12-22] MEDS: QUETIAPINE FUMARATE 25MG TABLET PO SCH (20:32)
[2022-12-22] MEDS: CARVEDILOL 12.5MG TABLET PO SCH (20:33)
[2022-12-22] MEDS: MEMANTINE HCL 5MG TABLET PO SCH (20:33)
[2022-12-22] MEDS: FAMOTIDINE 20MG TABLET PO SCH (20:34)
[2022-12-23] VITALS (10 sets, daily range): BP systolic 94–177; BP diastolic 58–101; PULSE 83–98; RESP 14–22; TEMP 97.6–99.5
[2022-12-23] MEDS: CLONIDINE 0.1MG TABLET PO PRN ×2 (00:24→05:20)
[2022-12-23] MEDS: LORAZEPAM 2MG/ML CPJ IM PRN (04:10)
[2022-12-23 06:54] LABS: ALBUMIN 3.2 g/dL (3.4-5.0)
[2022-12-23 07:06] LABS: PREALBUMIN 29.8 mg/dL (20.0-40.0)
[2022-12-23] MEDS: BLOOD SUGAR DIAGNOSTIC STRIP TEST SCH ×3 (07:30→21:00)
[2022-12-23] MEDS: INSULIN LISPRO 100 UNITS/ML SUBCUT SCH ×4 (08:00→23:45)
[2022-12-23] MEDS: MEMANTINE HCL 5MG TABLET PO SCH ×2 (09:00→21:03)
[2022-12-23] MEDS: QUETIAPINE FUMARATE 25MG TABLET PO SCH ×2 (09:00→21:04)
[2022-12-23] MEDS: HYDRALAZINE HCL 100MG TABLET PO SCH ×2 (09:00→13:43)
[2022-12-23] MEDS: ASPIRIN 81MG EC TABLET PO SCH (09:00)
[2022-12-23] MEDS: LEVOTHYROXINE SODIUM 50MCG TABLET PO SCH (09:00)
[2022-12-23] MEDS: AMLODIPINE 10MG TABLET PO SCH (09:00)
[2022-12-23] MEDS: CARVEDILOL 12.5MG TABLET PO SCH ×2 (09:00→21:05)
[2022-12-23] MEDS: CEFTRIAXONE 1,000 MG in DEXTROSE 5% WATER 50 ML IV SCH (09:00)
[2022-12-23] MEDS: FAMOTIDINE 20MG TABLET PO SCH (21:04)
[2022-12-23] MEDS: INSULIN GLARGINE 100 UNITS/ML SUBCUT SCH (21:08)
[2022-12-24] VITALS (9 sets, daily range): BP systolic 113–147; BP diastolic 64–90; PULSE 76–102; RESP 16–24; TEMP 97.7–98.8
[2022-12-24 05:20] LABS: BASOPHILS % 0.4 % (0.0-2.0); EOSINOPHILS % 4.3 % (0.0-5.0); HEMATOCRIT. 25.8 % (36.0-48.0); HEMOGLOBIN. 8.6 g/dL (12.0-16.0); LYMPHOCYTES % 21.7 % (20.0-50.0); MEAN CORPUSCULAR HGB CONC 33.3 g/dL (31.0-37.0); MEAN CORPUSCULAR VOLUME 96.3 fL (81.0-99.0); MEAN PLATELET VOLUME 8.6 fl (7.4-10.4); MONOCYTES % 12.5 % (2.0-8.0); NEUTROPHILS % 61.1 % (40.0-76.0); PLATELET 179 x1000/uL (130-400); RED BLOOD CELL COUNT 2.68 mill/uL (4.2-5.4); RED CELL DISTRIBUTION WIDTH 14.7 % (11.6-14.6); WHITE BLOOD COUNT 6.3 x1000/uL (4.5-11.0)
[2022-12-24 05:30] LABS: POTASSIUM 3.8 mEq/L (3.5-5.1)
[2022-12-24 05:35] LABS: CALCIUM 8.3 mg/dL (8.5-10.1); CREATININE 1.8 mg/dL (0.6-1.3)
[2022-12-24] MEDS: BLOOD SUGAR DIAGNOSTIC STRIP TEST SCH ×4 (07:45→21:00)
[2022-12-24] MEDS: MEMANTINE HCL 5MG TABLET PO SCH ×2 (09:48→21:35)
[2022-12-24] MEDS: LEVOTHYROXINE SODIUM 50MCG TABLET PO SCH (09:48)
[2022-12-24] MEDS: ASPIRIN 81MG EC TABLET PO SCH (09:48)
[2022-12-24] MEDS: CARVEDILOL 12.5MG TABLET PO SCH ×2 (09:49→21:35)
[2022-12-24] MEDS: QUETIAPINE FUMARATE 25MG TABLET PO SCH ×2 (09:50→21:00)
[2022-12-24] MEDS: AMLODIPINE 10MG TABLET PO SCH (09:50)
[2022-12-24] MEDS: HYDRALAZINE HCL 100MG TABLET PO SCH ×3 (09:50→17:35)
[2022-12-24] MEDS: CEFTRIAXONE 1,000 MG in DEXTROSE 5% WATER 50 ML IV SCH (09:51)
[2022-12-24] MEDS: INSULIN LISPRO 100 UNITS/ML SUBCUT SCH ×4 (09:51→21:48)
[2022-12-24] MEDS: FAMOTIDINE 20MG TABLET PO SCH (21:35)
[2022-12-24] MEDS: INSULIN GLARGINE 100 UNITS/ML SUBCUT SCH (21:50)
[2022-12-25] VITALS (7 sets, daily range): BP systolic 116–144; BP diastolic 59–96; PULSE 85–101; RESP 14–22; TEMP 97.9–99.5
[2022-12-25 07:18] LABS: BASOPHILS % 0.3 % (0.0-2.0); EOSINOPHILS % 2.7 % (0.0-5.0); HEMATOCRIT. 27.3 % (36.0-48.0); HEMOGLOBIN. 9.2 g/dL (12.0-16.0); MEAN CORPUSCULAR HEMOGLOBIN 32.6 pg (28.0-32.0); MEAN CORPUSCULAR HGB CONC 33.8 g/dL (31.0-37.0); MEAN CORPUSCULAR VOLUME 96.3 fL (81.0-99.0); MEAN PLATELET VOLUME 8.6 fl (7.4-10.4); MONOCYTES % 9.6 % (2.0-8.0); NEUTROPHILS % 72.4 % (40.0-76.0); PLATELET 193 x1000/uL (130-400); RED BLOOD CELL COUNT 2.84 mill/uL (4.2-5.4); RED CELL DISTRIBUTION WIDTH 14.9 % (11.6-14.6); WHITE BLOOD COUNT 9.1 x1000/uL (4.5-11.0)
[2022-12-25] MEDS: BLOOD SUGAR DIAGNOSTIC STRIP TEST SCH ×4 (07:30→21:00)
[2022-12-25 07:39] LABS: POTASSIUM 3.7 mEq/L (3.5-5.1)
[2022-12-25 07:48] LABS: CALCIUM 9.3 mg/dL (8.5-10.1); CREATININE 1.6 mg/dL (0.6-1.3)
[2022-12-25] MEDS: INSULIN LISPRO 100 UNITS/ML SUBCUT SCH ×4 (07:52→21:46)
[2022-12-25] MEDS: LEVOTHYROXINE SODIUM 50MCG TABLET PO SCH (08:04)
[2022-12-25] MEDS: ASPIRIN 81MG EC TABLET PO SCH (08:04)
[2022-12-25] MEDS: QUETIAPINE FUMARATE 25MG TABLET PO SCH ×2 (08:04→21:39)
[2022-12-25] MEDS: AMLODIPINE 10MG TABLET PO SCH (08:05)
[2022-12-25] MEDS: MEMANTINE HCL 5MG TABLET PO SCH ×2 (08:05→21:39)
[2022-12-25] MEDS: HYDRALAZINE HCL 100MG TABLET PO SCH ×3 (08:05→17:00)
[2022-12-25] MEDS: CARVEDILOL 12.5MG TABLET PO SCH ×2 (08:06→21:39)
[2022-12-25] MEDS: INSULIN GLARGINE 100 UNITS/ML SUBCUT SCH ×3 (08:13→18:04)
[2022-12-25] MEDS: CEFTRIAXONE 1,000 MG in DEXTROSE 5% WATER 50 ML IV SCH (08:31)
[2022-12-25] MEDS ORDERED: SODIUM CHLORIDE 0.9% 1,000 ML IV SCH (13:15)
[2022-12-25] MEDS: FAMOTIDINE 20MG TABLET PO SCH (21:39)
[2022-12-26] VITALS: BP 134/76; PULSE 93; RESP 21; TEMP 98.1
[2022-12-26 04:00] VITALS: BP 147/80; PULSE 88; RESP 22; TEMP 97.9
[2022-12-26 06:42] LABS: CALCIUM 8.5 mg/dL (8.5-10.1); POTASSIUM 3.3 mEq/L (3.5-5.1)
[2022-12-26 06:49] LABS: CREATININE 1.6 mg/dL (0.6-1.3)
[2022-12-26 06:59] LABS: BASOPHILS % 0.4 % (0.0-2.0); EOSINOPHILS % 3.6 % (0.0-5.0); HEMATOCRIT. 26.3 % (36.0-48.0); LYMPHOCYTES % 15.6 % (20.0-50.0); MEAN CORPUSCULAR HEMOGLOBIN 33.2 pg (28.0-32.0); MEAN CORPUSCULAR HGB CONC 34.1 g/dL (31.0-37.0); MEAN CORPUSCULAR VOLUME 97.3 fL (81.0-99.0); MONOCYTES % 9.2 % (2.0-8.0); NEUTROPHILS % 71.2 % (40.0-76.0); PLATELET 186 x1000/uL (130-400); RED BLOOD CELL COUNT 2.71 mill/uL (4.2-5.4); WHITE BLOOD COUNT 9.1 x1000/uL (4.5-11.0)
[2022-12-26 08:00] VITALS: BP 130/80; PULSE 88; RESP 20; TEMP 99
[2022-12-26] MEDS: INSULIN LISPRO 100 UNITS/ML SUBCUT SCH ×2 (08:00→14:00)
[2022-12-26] MEDS ORDERED: QUET25TA PO (09:08)
[2022-12-26] MEDS ORDERED: LANTUSUD SUBCUT ×3 (09:08→09:09)
[2022-12-26] MEDS: LEVOTHYROXINE SODIUM 50MCG TABLET PO SCH (09:11)
[2022-12-26] MEDS: AMLODIPINE 10MG TABLET PO SCH (09:11)
[2022-12-26] MEDS: HYDRALAZINE HCL 100MG TABLET PO SCH ×2 (09:12→14:45)
[2022-12-26] MEDS: ASPIRIN 81MG EC TABLET PO SCH (09:12)
[2022-12-26] MEDS: MEMANTINE HCL 5MG TABLET PO SCH (09:13)
[2022-12-26] MEDS: CARVEDILOL 12.5MG TABLET PO SCH (09:13)
[2022-12-26] MEDS ORDERED: POTASSIUM CHLORIDE 20MEQ TABLET SR PO ONE (09:15)
[2022-12-26] MEDS: QUETIAPINE FUMARATE 25MG TABLET PO SCH (09:20)
[2022-12-26] MEDS: INSULIN GLARGINE 100 UNITS/ML SUBCUT SCH (09:21)
[2022-12-26] MEDS ORDERED: POTASSIUM CHLORIDE 20MEQ/PACKET PO NR (10:00)
[2022-12-26 12:00] VITALS: BP 136/75; PULSE 90; RESP 20; TEMP 97.8
[2022-12-26] MEDS: CEFTRIAXONE 1,000 MG in DEXTROSE 5% WATER 50 ML IV SCH (12:01)
[2022-12-26 16:17] VITALS: BP 148/89; PULSE 104; TEMP 98.6; O2SAT 97
== END 2022-12-26 17:05 | disposition home or self-care (01) | DRG 689 ==
LOC: ER 08:59 → 5EST 12:21 → EDBEDREQ 12:25 → EDBEDREQTM 12:25
PROVIDERS: ADMIT Internal Medicine; ATTEND Internal Medicine
DX: N39.0 Urinary tract infection, site not specified (principal); G93.41 Metabolic encephalopathy; N17.9 Acute kidney failure, unspecified; I12.9 Hypertensive chronic kidney disease with stage 1 through stage 4 chronic kidney disease, or unspecified chronic kidney disease; D64.9 Anemia, unspecified; E03.9 Hypothyroidism, unspecified; F03.90 Unspecified dementia, unspecified severity, without behavioral disturbance, psychotic disturbance, mood disturbance, and anxiety; N31.9 Neuromuscular dysfunction of bladder, unspecified; E11.22 Type 2 diabetes mellitus with diabetic chronic kidney disease; E78.00 Pure hypercholesterolemia, unspecified; J44.9 Chronic obstructive pulmonary disease, unspecified; N18.30 Chronic kidney disease, stage 3 unspecified; Z86.73 Personal history of transient ischemic attack (TIA), and cerebral infarction without residual deficits; Z74.01 Bed confinement status; Z78.1 Physical restraint status; Z82.49 Family history of ischemic heart disease and other diseases of the circulatory system; Z99.3 Dependence on wheelchair
CPT/HCPCS: 36415; 70496; 70498; 70551; 71045; 76770; 80048; 80053; 80305; 80320; 81003; 82040; 82550; 82962; 83036; 83605; 84134; 84484; 85025; 92610; 93005; 97112; 97162; 97166; 99291; A6261; J0696; J1815; J2060; J3370; J7030; J7060; Q9967; A4315; G0480

== ENCOUNTER 2024-10-16 17:02 | Emergency (ER) | payer OTHER, MEDICAID ==
[~2024-10-16] VITALS: Ht 165.1 cm; Wt 73.0 kg
[~2024-10-16 17:02] MED LIST changes: -ASPI-1497 MT; +ATOR40TA70 PO; -BACL20TA MT; +DOCU-138 MT; -FISH MT; +FOLI0.8C MT; +GABA-1180; -HYDR100T26 MT; +HYDR100T31 PO; +INSU100I24 SQ; +LEVO50TA8; -LEVO50TA8 MT; -LINA5TAB PO; +MEMA5TAB16; -MEMA5TAB7 PO; -MIRT-89 PO; -OXYB5TAB17 PO; -PYRI100T17 MT; +SENN-362 MT; -SITA1TAB6 MT; +TOLT4CAP2 PO
[2024-10-16 17:08] VITALS: O2SAT 97
[2024-10-16 19:00] VITALS: BP 162/86; PULSE 93; RESP 15; TEMP 36.7; O2SAT 97
== END 2024-10-16 22:06 | disposition home or self-care (01) ==
LOC: ER 17:23
DX: T83.9XXA Unspecified complication of genitourinary prosthetic device, implant and graft, initial encounter (principal); F03.90 Unspecified dementia, unspecified severity, without behavioral disturbance, psychotic disturbance, mood disturbance, and anxiety; I10 Essential (primary) hypertension; E78.00 Pure hypercholesterolemia, unspecified; E11.9 Type 2 diabetes mellitus without complications; E03.9 Hypothyroidism, unspecified; Z87.440 Personal history of urinary (tract) infections; Z79.899 Other long term (current) drug therapy; Z79.4 Long term (current) use of insulin; Z86.73 Personal history of transient ischemic attack (TIA), and cerebral infarction without residual deficits; Y92.89 Other specified places as the place of occurrence of the external cause
CPT/HCPCS: 51702; 99284

== ENCOUNTER 2024-11-03 09:44 | Emergency (ER) | payer OTHER, MEDICAID ==
[~2024-11-03] VITALS: Ht 165.1 cm; Wt 70.0 kg
[2024-11-03 09:47] VITALS: O2SAT 91
[2024-11-03 10:28] LABS: BASOPHILS % 0.9 % (0.0-2.0); EOSINOPHILS % 5.0 % (0.0-5.0); HEMATOCRIT. 26.1 % (36.0-48.0); HEMOGLOBIN. 8.7 g/dL (12.0-16.0); LYMPHOCYTES % 27.5 % (20.0-50.0); MEAN PLATELET VOLUME 8.7 fl (7.4-10.4); MONOCYTES % 11.4 % (2.0-8.0); NEUTROPHILS % 55.2 % (40.0-76.0); PLATELET 144 x1000/uL (130-400); RED BLOOD CELL COUNT 2.61 mill/uL (4.2-5.4); RED CELL DISTRIBUTION WIDTH 13.4 % (11.6-14.6)
[2024-11-03 10:40] LABS: INR 1.1
[2024-11-03] MEDS: SODIUM CHLORIDE 0.9% 1,000 ML IV ONE (10:54)
[2024-11-03 11:13] LABS: CREATININE 2.4 mg/dL (0.6-1.0); UREA NITROGEN BLOOD 30 mg/dL (9-23)
[2024-11-03 11:14] LABS: ETHANOL BLOOD < 10 mg/dL (<10)
[2024-11-03 11:15] LABS: ASPARTATE AMINOTRANSFERASE 14 IU/L (<34); BILIRUBIN DIRECT 0.1 mg/dL (<=3.0)
[2024-11-03 11:16] LABS: BILIRUBIN TOTAL 0.4 mg/dL (0.1-1.0); PROTEIN TOTAL 6.5 g/dL (6.0-8.3)
[2024-11-03 11:22] LABS: TROPONIN I HIGH SENSITIVITY 37 ng/L (3.0-34)
[2024-11-03] MEDS: INSULIN REGULAR (HUMULIN R) 1000UNITS/10ML VIAL IV ONE (11:46)
[2024-11-03 12:33] LABS: TROPONIN I HIGH SENSITIVITY 40 ng/L (3.0-34)
[2024-11-03] MEDS: IOHEXOL-350 100 ML BOTTLE ONE (12:39)
[2024-11-03 15:04] VITALS: BP 157/91; PULSE 71; RESP 15; TEMP 36.7; O2SAT 98
== END 2024-11-03 15:10 | disposition short-term general hospital (02) ==
LOC: ER 09:55
DX: E11.65 Type 2 diabetes mellitus with hyperglycemia (principal); E03.9 Hypothyroidism, unspecified; E78.00 Pure hypercholesterolemia, unspecified; F03.90 Unspecified dementia, unspecified severity, without behavioral disturbance, psychotic disturbance, mood disturbance, and anxiety; I10 Essential (primary) hypertension; Z86.73 Personal history of transient ischemic attack (TIA), and cerebral infarction without residual deficits; Z79.899 Other long term (current) drug therapy
CPT/HCPCS: 80076; 80048; 80320; 85025; 85610; 85730; 84484; 36415; 71045; 70496; 70498; 70450; 93005; 96361; 96374; 99291; Q9967; J1815; J7030; G0480